=== PATIENT | female | born 1960 | race Caucasian/White ===

== ENCOUNTER 2017-02-02 07:43 | Emergency (ER) | payer OTHER ==
[~2017-02-02] VITALS: Ht 152.4 cm; Wt 83.9 kg
[~2017-02-02 07:43] MED LIST: DICLOFENAC SODI75 M2 PO; HYDROCHLOROTH12.5 M3 PO; MEDROL4 M2 PO; MULTI-DAY VITA1 EACH PO; ORPHENADRINE C100 MG PO; PERCOCET 5-3251 EACH PO; VALIUM5 M2 PO; VITAMIN D250000 UNIT PO
[2017-02-02 07:49] VITALS: BP 180/70
[2017-02-02] MEDS ORDERED: IBUPROFEN800 M1 PO (08:00)
--- NOTE | 2017-02-02 08:28 | ED ANKLE/FOOT INJURY COMPLAINT ---
History of Present Illness General Chief Complaint: Laceration Procedure Stated Complaint: L LEG LAC Source: patient Exam Limitations: no limitations Vital Signs & Intake/Output Vital Signs & Intake/Output Vital Signs Date Time Temp Pulse Resp B/P B/P Pulse O2 O2 Flow FiO2 Mean Ox Delivery Rate 02/02 0833 Room Air Room Air 02/02 0749 97.2 58 18 180/70 96 Room Air Allergies Coded Allergies: NO KNOWN ALLERGIES (03/30/16) Reconcile Medications Ergocalciferol (Vitamin D2) (Vitamin D2) 50,000 UNIT CAPSULE 1 CAP PO Q2W SUPPLEMENT (Reported) Hydrochlorothiazide 12.5 MG CAPSULE 1 CAP PO DAILY BP (Reported) Ibuprofen 800 MG TABLET 1 TAB PO QPM PAIN (Reported) Multivitamin (Multi-Day Vitamins) 1 EACH TABLET 1 TAB PO DAILY SUPPLEMENT ( Reported) Triage Note: 56 Y/O FEMALE C/O ? VARICOSE VEIN; STATES SHE GOT OUT OF SHOWER THIS AM AND NOTICED LOTS OF BLOOD ON FLOOR. THINKS SHE HIT A SMALL SCAB THAT WAS ON INNER L ANKLE. STATES ARE BLED A LOT. PRESSURE DRESSING INTACT WITH NO BLEEDING NOTED IN TRIAGE. Triage Nurses Notes Reviewed? yes Occurred: just prior to arrival Duration: minute(s):, constant, continues in ED Timing: recent history Pain/Injury Location: Left: Ankle. Method of Injury: unknown No Modifying Factors: none HPI: 56-year-old female comes into emergency room with bleeding to her left ankle. Patient reports that she was in the shower and when she stepped out of the shower she noticed that there was some blood squirting across the room and bleeding onto the floor from her left ankle. She denies any trauma that she is aware of. Denies any other associated symptoms. Past History Travel History Traveled to [place] past 21 day No Medical History Any Pertinent Medical History? 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 No Review of Systems Review of Systems Constitutional: Reports: no symptoms. EENTM: Reports: no symptoms. Respiratory: Reports: no symptoms. Cardiovascular: Reports: no symptoms. GI: Reports: no symptoms. Genitourinary: Reports: no symptoms. Musculoskeletal: Reports: no symptoms. Skin: Reports: no symptoms. Neurological/Psychological: Reports: no symptoms. Hematologic/Endocrine: Reports: see HPI. Immunologic/Allergic: Reports: no symptoms. All Other Systems: Reviewed and Negative Physical Exam Physical Exam General Appearance: well developed/nourished, mild distress Head: atraumatic Eyes: Bilateral: normal appearance. Ears, Nose, Throat: normal ENT inspection, hearing grossly normal Neck: normal inspection Cardiovascular/Respiratory: no respiratory distress Back: normal inspection Leg/Knee/Thigh Left: normal inspection Ankle Left: no active bleeding,, small pinpoint puncture to superficial varicose vein Neuro/Vascular: normal motor function, normal sensation Tendon: normal tendon function Psychiatric: awake, alert, oriented x 3 Skin: intact, normal color, warm/dry Progress Differential Diagnosis: cellulitis, gout, fracture, dislocation, sprain, contusion, varicose vein rupture Plan of Care: 02/02/2017 10:17:34 AM No active bleeding. Koband placed over left ankle. Patient told to leave dressing in place for the next 2 days. Departure Departure Disposition: HOME OR SELF CARE Condition: Stable Clinical Impression Primary Impression: Ruptured varicose vein Referrals: LEAH SULLIVAN MD (PCP/Family) Additional Instructions: KEEP DRESSING IN PLACE FOR THE NEXT 2 DAYS. Return if any recurrent bleeding. Return if any other concerns worsening symptoms. Please go over all results of today's visit with your primary care doctor. Contact your primary care doctor to let them know you were here in the emergency room. There may be nonspecific findings which may not be related to your visit today here in the emergency room but may require further evaluation and chronic monitoring by your primary care doctor. If you had a laceration today the chance of foreign body always remains. You should follow-up with your primary care doctor for recheck in 3-5 days for a wound check. If you had an x-ray done there is a chance that a fracture could have been missed on initial read and you should follow-up with your primary care doctor for repeat x-rays if symptoms persist. If your blood pressure was elevated here in the emergency room please have rechecked by her primary care doctor within the next 48 hours by your primary care doctor. If you were prescribed a narcotic here in the emergency room or any type of controlled substances you're not allowed to drive while taking this medication or operate any type of heavy machinery. Narcotics can make you feel lightheaded dizziness nausea and can cause constipation. You may need to orange picker a stool softener. Thank you for choosing [facility] emergency room. Please return to the emergency room immediately if you have any other concerns worsening of symptoms. Departure Forms: Customer Survey General Discharge Information Procedures Laceration/Wound Repair Progress: Dermabond placed over left ankle, compression wrap placed, no associated bleeding,
== END 2017-02-02 08:34 ==
LOC: ERH 07:43
DX: I83.892 Varicose veins of left lower extremity with other complications (principal)

== ENCOUNTER 2017-10-10 22:57 | Emergency (ER) | payer OTHER ==
[~2017-10-10] VITALS: Ht 152.4 cm; Wt 90.7 kg
[~2017-10-10 22:57] MED LIST changes: +IBUPROFEN800 M1 PO
[2017-10-11] MEDS ORDERED: AMOXICILLIN875 M1 PO (00:43)
[2017-10-11] MEDS ORDERED: IBUPROFEN600 M1 PO (00:43)
[2017-10-11] MEDS ORDERED: AFRIN30 ML NASB (00:43)
--- NOTE | 2017-10-11 00:45 | ED EAR COMPLAINT ---
History of Present Illness General Chief Complaint: Ear Complaints Stated Complaint: "I NEED TO BE SEEN FOR AN EAR INFECTION" Source: patient, old records Exam Limitations: no limitations Vital Signs & Intake/Output Vital Signs & Intake/Output Vital Signs Date Time Temp Pulse Resp B/P B/P Pulse O2 O2 Flow FiO2 Mean Ox Delivery Rate 10/11 0057 72 156/97 10/10 2310 97.0 62 18 170/94 97 Room Air ED Intake and Output 10/11 0000 10/10 1200 Intake Total Output Total Balance Patient 200 lb Weight Weight Reported by Patient Measurement Method Allergies Coded Allergies: NO KNOWN ALLERGIES (03/30/16) Reconcile Medications Amoxicillin 875 MG TABLET 1 TAB PO BID otitis media Ergocalciferol (Vitamin D2) (Vitamin D2) 50,000 UNIT CAPSULE 1 CAP PO Q2W SUPPLEMENT (Reported) Hydrochlorothiazide 12.5 MG CAPSULE 1 CAP PO DAILY BP (Reported) Ibuprofen 600 MG TABLET 1 TAB PO Q6PRN PRN pain with food Oxymetazoline HCl (Afrin) 0.05 % SPRAY 2 SPRAY NASB BID sinusitis Triage Note: PT TO ER C/C LEFT EAR PAIN INTERMITTENT X 1 DAY. NO PAIN AT THIS TIME. STATES HAS HAD INTERMITENT WAVES OF VERTIGO ACCOMPANYING PAIN. Triage Nurses Notes Reviewed? yes Onset: Afternoon Duration: hour(s):, constant, continues in ED Timing: recent history Injury Environment: home Severity: moderate Modifying Factors: Improves With: medication. Associated Symptoms: cough LMP (ages 10-50): post menopausal : No Patient currently breastfeeds: No HPI: 10 hours prior to admission patient complains of left ear pain described as achy intermittent progressive. She also complains of nasal congestion nonproductive cough sore throat. She denies fever chills nausea vomiting diarrhea abdominal pain chest pain shortness breath headache dysuria rash bleeding change in hearing. Past History Travel History Traveled to [place] past 21 day No Medical History Any Pertinent Medical History? 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 No Review of Systems Review of Systems Constitutional: Reports: no symptoms. EENTM: Reports: see HPI, ear pain, nasal congestion, throat pain. Respiratory: Reports: see HPI, cough. Denies: sputum production. Cardiovascular: Reports: no symptoms. GI: Reports: no symptoms. Genitourinary: Reports: no symptoms. Musculoskeletal: Reports: no symptoms. Skin: Reports: no symptoms. Neurological/Psychological: Reports: no symptoms. Hematologic/Endocrine: Reports: no symptoms. Immunologic/Allergic: Reports: no symptoms. All Other Systems: Reviewed and Negative Physical Exam Physical Exam General Appearance: well developed/nourished, alert, awake, anxious, mild distress Head: atraumatic, normal appearance Eyes: Bilateral: normal appearance, PERRL, EOMI. Ears: Left: Tympanic dull, Tympanic red. Right: Tympanic normal. Bilateral: canal normal. Nose: discharge Mouth/Throat: normal mouth inspection, pharynx swelling Neck: normal inspection, supple Cardiovascular/Respiratory: normal breath sounds, regular rate/rhythm Back: normal inspection, normal range of motion Neurologic/Psych: awake, alert, oriented x 3, normal mood/affect Skin: intact, normal color, warm/dry Progress Differential Diagnoses I considered the following diagnoses in my evaluation of the patient: Otitis media otitis externa Plan of Care: Current Medications Sig/Corey Start time Last Medication Dose Stop Time Status Admin Amoxicillin 750 MG ONCE ONE 10/11 44 UNVr (Amoxil) 10/11 45 Ibuprofen 600 MG ONCE ONE 10/11 44 UNVr (Motrin) 10/11 45 Oxymetazoline HCl 2 SPRAY ONCE ONE 10/11 44 UNVr (Afrin (No Drip)) 10/11 45 Initial ED EKG: none Departure Departure Time of Disposition: 41 Disposition: HOME OR SELF CARE Condition: Stable Clinical Impression Primary Impression: Otitis media Secondary Impressions: Upper respiratory infection Referrals: Kellee Grier MD (PCP/Family) Departure Forms: Customer Survey General Discharge Information Prescriptions: Current Visit Scripts Amoxicillin 1 TAB PO BID #20 TAB Oxymetazoline HCl (Afrin) 2 SPRAY NASB BID #30 ML Ibuprofen 1 TAB PO Q6PRN PRN pain #50 TAB with food
[2017-10-11 00:57] VITALS: BP 156/97
== END 2017-10-11 00:57 ==
LOC: ERH 22:57
DX: H66.92 Otitis media, unspecified, left ear (principal); J06.9 Acute upper respiratory infection, unspecified